=== PATIENT | male | born 1970 | race Two or more races ===

== ENCOUNTER 2019-05-03 15:35 | Inpatient (IN) | payer MEDICAID, OTHER ==
[~2019-05-03] VITALS: Ht 185.4 cm; Wt 157.5 kg
[2019-05-03] MEDS ORDERED: SODIUM CHLORIDE 0.9% 1,000 ML IV ONE (16:20)
[2019-05-03] MEDS ORDERED: THIAMINE 100mg/ml INJ (200mg/2ml VIAL) IV ONE (16:30)
[2019-05-03] MEDS ORDERED: PANTOPRAZOLE 40 MG/10 ML VIAL INJ IV ONE (17:15)
[2019-05-03 18:38] LABS: Hematocrit 35.9 % (41.0-53.0); Hemoglobin 12.2 g/dL (13.5-17.5); Mean Corpuscular Volume 108.9 fL (80.0-100.0); Platelet Count (auto) 180 10^3/uL (140-450); Red Blood Cells 3.29 10^6/uL (4.5-5.90); White Blood Cell 10.3 10^3/uL (4.4-10.8)
[2019-05-03 18:43] LABS: INR 1.91 (0.9-1.15); Partial Thromboplastin Time 52.1 sec (23.64-32.05)
[2019-05-03 18:45] LABS: Basophils % (manual) 0 (0.0-2.0); Blast Cells 0; Eosinophils % (manual) 0 (0-7); Myelocytes % 0; Promyelocytes % 0; Reactive Lymphocytes 0
[2019-05-03 18:48] LABS: Albumin 1.4 g/dL (3.4-5.0); Anion Gap 25 (5-15); Blood Urea Nitrogen 56 mg/dL (7-18); Calcium 6.7 mg/dL (8.5-10.1); Chloride 109 mmol/L (98-107); Glucose 70 mg/dL (74-106); Magnesium 3.1 mg/dL (1.6-2.6); Potassium 3.4 mmol/L (3.5-5.1); Sodium 141 mmol/L (136-145)
[2019-05-03 18:54] LABS: Alanine Aminotransferase 58 U/L (16-61); Alkaline Phosphatase 107 U/L (45-117); Aspartate Aminotransferase 149 U/L (15-37); BUN/Creatinine Ratio 5.6; Bilirubin, Total 23.4 mg/dL (0.2-1.0); GFR African American 7 mL/min; GFR Non-African American 6 mL/min; Total Protein 5.4 g/dL (6.4-8.2)
[2019-05-03] MEDS ORDERED: LACTULOSE 20Gm/30ML SOLN PO ONE (19:00)
[2019-05-03 19:01] LABS: Carbon Dioxide 7 mmol/L (21-32)
[2019-05-03 19:14] LABS: Band Neutrophils % (manual) 9; Lymphocytes % (manual) 4 (10.0-50.0); Metamyelocytes % 1; Monocytes % (manual) 22 (0-12)
[2019-05-03] MEDS ORDERED: DEXTROSE (25%) 10 ML SYRG IV ONE (19:30)
[2019-05-03] MEDS ORDERED: POTASSIUM CHL 10 Meq TABLET PO ONE (19:30)
[2019-05-03] MEDS ORDERED: CALCIUM CHL 100MG/ML 500 MG in D5W 5% 100 ML IV ONE (19:30)
[2019-05-03] MEDS ORDERED: SODIUM BICARBONATE 8.4 % INJ 50ML VIAL IV ONE (19:30)
[2019-05-03] MEDS ORDERED: ONDANSETRON HCL 4 MG/2 ML VIAL IV PRN (20:15)
[2019-05-03] MEDS ORDERED: NITROGLYCERIN 0.4 MG SL TAB SL PRN (20:15)
[2019-05-03] MEDS ORDERED: MORPHINE SULF INJ 2 MG/ML SYRINGE 1ML IV PRN (20:15)
[2019-05-03] MEDS ORDERED: traMADol HCL 50 MG TAB PO PRN (20:15)
[2019-05-03] MEDS ORDERED: SODIUM BICARBONATE 50ML VIAL 50 ML in SOD CHL 0.45% 1,000 ML IV ONE (20:15)
[2019-05-03] MEDS ORDERED: SODIUM BICARBONATE 8.4% INJ 50ML SYRINGE ONE (21:30)
[2019-05-03] MEDS: LORazepam 2MG/ML-1ML VIAL IV PRN (22:20)
[2019-05-04] MEDS: LORazepam 2MG/ML-1ML VIAL IV PRN ×3 (00:51→06:49)
[2019-05-04 01:10] VITALS: BP 116/93
--- NOTE | 2019-05-04 03:49 | NUR ---
Pt moved in hospital bed to Rm 223B 2/2 his moving self to foot of bed in RM 222B and lieing across the bed with head/neck hyperextended off side of bed. He had poured approx half pitcher of water across himself and the bed, removed his O2 because he felt he did not need it and was attempting to further remove his hospital gown which he had half off. Pt repeatedly requested his 'brown shirt' though this RN had already informed him twice it would not be comfortable with his telemetry set up and IV. Charge nurse, ZOEY Vizcaino, notified so pt was moved to be with a sitter for his safety.
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
[2019-05-04 09:00] VITALS: BP 99/61
[2019-05-04] MEDS: THIAMINE 100mg/ml INJ (200mg/2ml VIAL) IV SCH (10:24)
[2019-05-04 10:57] LABS: Red Blood Cells 3.41 10^6/uL (4.5-5.90)
[2019-05-04 11:00] LABS: Hematocrit 36.3 % (41.0-53.0); Hemoglobin 12.5 g/dL (13.5-17.5); Mean Corpuscular Hemoglobin 36.8 pg (28.0-32.0); Mean Corpuscular Hgb Conc. 34.5 g/dL (32.0-36.0); Mean Corpuscular Volume 106.5 fL (80.0-100.0); Platelet Count (auto) 201 10^3/uL (140-450); Red Cell Distribution Width 18.7 % (11.8-14.3)
[2019-05-04 11:07] LABS: Basophils % (manual) 0 (0.0-2.0); Blast Cells 0; Eosinophils % (manual) 0 (0-7); Metamyelocytes % 0; Myelocytes % 0; Promyelocytes % 0; Reactive Lymphocytes 0
[2019-05-04 11:11] LABS: Albumin 1.7 g/dL (3.4-5.0); Calcium 7.9 mg/dL (8.5-10.1); Potassium 3.8 mmol/L (3.5-5.1)
[2019-05-04 11:23] LABS: Bilirubin, Total 26.4 mg/dL (0.2-1.0); Total Protein 6.4 g/dL (6.4-8.2)
[2019-05-04] MEDS ORDERED: LORazepam 2MG/ML-1ML VIAL IV PRN (11:30)
[2019-05-04] MEDS ORDERED: LORazepam 2MG/ML-1ML VIAL IV ONE (11:30)
[2019-05-04] MEDS ORDERED: PHYTONADIONE (VIT K)10 MG/ML 1ML VIAL SUBCUT ONE (11:30)
[2019-05-04 11:37] LABS: BUN/Creatinine Ratio 5.8
--- NOTE | 2019-05-04 11:45 | NUR ---
WOUND CARE NOTE: Wound care in to see patient per wound care request regarding multiple abrasions and low Micky score of 13. Bedside nurse took photograph of patient's skin issue upon admission for reference. Patient is 48 years old male, with admitting diagnosis of Hepatorenal Failure. Patient is resting in bed in Rm. 223B. He's awake, not oriented and restless. He has sitter at bedside for safety. He's max assist in turning and repositioning. Patient appears to be in mild pain using Mejias Schumacher Faces Pain Scale. Skin assessment done with the assistance of patient's nurse, ZOEY Mota. No wound noted other than R knee and Rt lower leg superficial abrasion and ecchymosis, area is clean and dry, left open to air. On reports patient is heavy drinker and had a fall. Patient's medial sacrum at intragluteal fold noted with moist redness consistent with intertrigo/MASD. Patient's skin also noted with yellow discoloration. Cleansed patient's R knee and sacral IGF with mild soap and water, patted dry and applied Z Guard cream. Repositioned patient for comfort, redistributed pressure points with pillows. Patient tolerated well. Sitter at bedside. RECOMMENDATION: BID/PRN cleaning and application of Z Guard cream to R knee abrasion and sacral intragluteal fold, perineum per MD order, dietary consult, frequent turning and repositioning schedule as condition permits ,redistribute pressure points with pillows, elevate bilateral heels on pillows, keep clean and dry, continue monitoring by wound care while patient is hospitalized. Addendum: 05/04/19 at 1827 by Aracelis Ivy RN Amended: Links added.
[2019-05-04 11:46] LABS: INR 1.74 (0.9-1.15); Partial Thromboplastin Time 44.4 sec (23.64-32.05)
--- NOTE | 2019-05-04 12:00 | NUR ---
RECTAL TUBE INSERTED
[2019-05-04 12:14] LABS: Alcohol, Urine < 3.0 mg/dL (0-5); Amphetamine Screen, Urine NEGATIVE (NEGATIVE); Barbiturate Scree,Urine NEGATIVE (NEGATIVE); Benzodiazephine Screen, Urine NEGATIVE (NEGATIVE); Cannabinoid Screen, Urine NEGATIVE (NEGATIVE); Cocaine Screen, Urine NEGATIVE (NEGATIVE); Phencyclidine Screen, Urine NEGATIVE (NEGATIVE)
[2019-05-04 12:16] LABS: Opiate Scree,Urine NEGATIVE (NEGATIVE)
[2019-05-04 12:25] LABS: Protein, Urine 636.8 mg/dL (0.0-11.9)
[2019-05-04] MEDS: ALBUMIN 25% 100 ML IV SCH ×2 (12:30→19:53)
[2019-05-04 13:00] VITALS: BP 105/58
[2019-05-04] MEDS: SODIUM BICARBONATE 50ML VIAL 100 ML, POTASSIUM CHLORIDE 20 MEQ in D5W 5% 1,000 ML IV SCH (13:22)
[2019-05-04 13:35] LABS: Band Neutrophils % (manual) 5; Lymphocytes % (manual) 6 (10.0-50.0); Monocytes % (manual) 14 (0-12)
[2019-05-04] MEDS: LACTULOSE 20Gm/30ML SOLN PR SCH ×2 (13:51→19:50)
[2019-05-04] MEDS: OCTREOTIDE ACETATE 100 MCG/ML VL SUBCUT SCH ×2 (14:59→22:15)
[2019-05-04 17:20] VITALS: BP 110/64
--- NOTE | 2019-05-04 17:22 | NUR ---
PATIENT TRANSFERRED TO [facility]
--- NOTE | 2019-05-04 18:00 | NUR ---
Patient in room 261 from 223B. Patient on the monitor. Patient responsive to name but response is garbled and incoherent. Patient on 2L NC saturation at 99%. IV left forearm patent, clean, dry, and intact. Ramos and rectal tube to gravity. No S/S of pain/ SOB or distress noted. Bed locked and in the lowest position, side rails up x2, call light with in reach. Family at bedside. Report to be given to night clerk RN. will continue to monitor.
--- NOTE | 2019-05-04 19:35 | NUR ---
OPEN SHIFT NOTE PATIENT RESTING IN BED WITH EYES CLOSED, OPENS EYES FOR SHORT PERIOD OF TIME WHEN CALLED BY NAME AND LIGHT SHAKING, PATIENT A&O TO SELF AND LOCATION, NOTED TO BE LETHARGIC AND UNABLE TO COMPLETE FULL SENTENCES BEFORE CLOSING EYES. SKIN COLOR JAUNDICED AND DIAPHORETIC WITH EDEMA THROUGHOUT. RECTAL TUBE IN PLACE WITH DARK LIQUID STOOL, AND SANDOVAL CATHETER TO GRAVITY WITH MINIMAL DARK BROWN COLORED URINE. RIGHT KNEE NOTED TO HAVE ABRASION AND HEMATOMA AND UPPER ABD WITH LARGE ECCHYMOTIC AREA. VITAL SIGNS STABLE AT THIS TIME, CONNECTED TO BEDSIDE MONITOR.CONTINUE POC AND FALL,ASPIRATION AND PRESSURE ULCER PRECAUTIONS. PATIENT HAS SITTER AT BEDSIDE FOR PATIENT SAFETY.
[2019-05-04 20:00] VITALS: BP 91/45
[2019-05-04] MEDS: FAMOTIDINE (10MG/ML) 2ML VL IV SCH (22:07)
[2019-05-05] VITALS: BP 94/57
--- NOTE | 2019-05-05 02:27 | NUR ---
URINE SAMPLE COLLECTED AND SENT TO LAB VIA BULLET
[2019-05-05] MEDS: SODIUM BICARBONATE 50ML VIAL 100 ML, POTASSIUM CHLORIDE 20 MEQ in D5W 5% 1,000 ML IV SCH ×4 (02:29→23:49)
[2019-05-05] MEDS: ALBUMIN 25% 100 ML IV SCH ×2 (03:49→13:34)
[2019-05-05 04:00] VITALS: BP 92/53
[2019-05-05 05:02] LABS: White Blood Cell 12.4 10^3/uL (4.4-10.8)
[2019-05-05 05:03] LABS: Basophils # (auto) 0.1 uL; Basophils % (auto) 0.8 % (0.0-2.0); Eosinophils # (auto) 0.1 uL; Eosinophils % (auto) 0.4 % (0.0-7.0); Hematocrit 36.6 % (41.0-53.0); Hemoglobin 12.8 g/dL (13.5-17.5); Lymphocytes % (auto) 7.7 % (10.0-50.0); Mean Corpuscular Hemoglobin 37.3 pg (28.0-32.0); Mean Corpuscular Hgb Conc. 34.8 g/dL (32.0-36.0); Mean Corpuscular Volume 107.1 fL (80.0-100.0); Monocytes # (auto) 1.3 uL; Monocytes % (auto) 10.2 % (0.0-12.0); Neutrophils # (auto) 10.1 uL; Neutrophils % (auto) 80.9 % (37.0-80.0); Nucleated Red Blood Cells % 0.4 %; Platelet Count (auto) 186 10^3/uL (140-450); Red Blood Cells 3.42 10^6/uL (4.5-5.90); Red Cell Distribution Width 18.4 % (11.8-14.3)
[2019-05-05 05:28] LABS: Albumin 2.1 g/dL (3.4-5.0); Calcium 7.8 mg/dL (8.5-10.1); Potassium 3.9 mmol/L (3.5-5.1)
--- NOTE | 2019-05-05 05:30 | NUR ---
AM CARE COMPLETE BED BATH PROVIDED USING CHG WIPES AND WARM WASH CLOTHS. PERINEAL AREA CLEANED, SKIN INTEGRITY REASSESSED. ABRASION AND HEMATOMA TO RIGHT KNEE, PATIENT WITH GENERALIZED EDEMA THROUGHOUT AND MOISTURE ASSOCIATED DERMATITIS TO THE PERINEAL AND SACRAL AREA CLEANSED, PATTED DRY, AND ZGUARD BARRIER CREAM APPLIED WITH OPTIFOAM FOR PREVENTATIVE TO SACRUM. PATIENT REPOSITIONED IN BED FOR COMFORT.
[2019-05-05] MEDS: OCTREOTIDE ACETATE 100 MCG/ML VL SUBCUT SCH ×3 (05:38→21:35)
[2019-05-05 05:39] LABS: Total Protein 6.7 g/dL (6.4-8.2)
[2019-05-05] MEDS: LACTULOSE 20Gm/30ML SOLN PR SCH ×5 (05:42→23:49)
--- NOTE | 2019-05-05 06:54 | NUR ---
END OF SHIFT NOTE PATIENT RESTING IN BED WITH EYES CLOSED. NO S/S OF DISTRESS OR SOB. HR 84, O2 SAT 96, RR 21. WILL ENDORSE CARE TO DAY SHIFT RN. BED ALARM ON. WILL ENDORSE CARE TO DAY SHIFT RN.
[2019-05-05 07:16] LABS: Urine Amorphous Crystal MANY /hpf (None Seen); Urine Bacteria MANY /hpf (None Seen); Urine Blood 2+ /uL (Negative); Urine Hyaline Cast MANY /lpf (0 - 2); Urine Mucus FEW (None Seen); Urine Specific Gravity 1.025 (1.001-1.035); Urine WBC 157 /hpf (0 - 3)
[2019-05-05 07:45] VITALS: BP 100/63
--- NOTE | 2019-05-05 08:00 | NUR ---
Opening Shift Note Assumed care of patient. Patient eyes open to name but does not respond appropriately. Patient has left forearm 20G running fluids at 125ml/hr, patent, clean, dry, and intact. Ramos to gravity dark david urine noted. Rectal tube in place and to gravity. Patient on the monitor. Patient on 2L NC saturation at 97%. Patient extremely jaundice. No S/S of distress/SOB or pain. Instructed on POC and to call for assist PRN. Bed locked and in the lowest position, side rails up x2, call light with in reach. Will continue to monitor.
--- NOTE | 2019-05-05 09:00 | NUR ---
Dr. Sherman at bedside.
[2019-05-05 09:59] LABS: INR 1.75 (0.9-1.15); Partial Thromboplastin Time 41.6 sec (23.64-32.05)
--- NOTE | 2019-05-05 10:00 | NUR ---
Medication dosages, usages, and side effects explained to patient and family at bedside. Patient unable to verbalize understanding but family at bedside verbalized understanding. Will continue to monitor.
[2019-05-05] MEDS: FAMOTIDINE (10MG/ML) 2ML VL IV SCH ×2 (10:52→21:35)
[2019-05-05] MEDS: THIAMINE 100mg/ml INJ (200mg/2ml VIAL) IV SCH (10:52)
[2019-05-05] MEDS: FOLIC ACID 1 MG in D5W 5% 50 ML IV SCH (10:53)
[2019-05-05 11:38] LABS: Hepatitis A Ab IgM Negative
[2019-05-05 11:39] LABS: Hepatitis B Core IgM Negative; Hepatitis B Surface Antigen Negative (Negative); Hepatitis C Antibody Negative (Negative)
[2019-05-05 11:45] VITALS: BP 107/61
--- NOTE | 2019-05-05 12:00 | NUR ---
No change in patient condition. No S/S of pain/SOB or distress at this time. Will continue to monitor.
--- NOTE | 2019-05-05 12:27 | NUR ---
Nutrition consult/assessment Notes please see attached link for complete assessment Est. Needs ABW [id number] kcal (17-20 kcal/kgBW), 72-96 gms pro (0.6-0.8 gms/kgBW d/t elev ammonia severe hypoalbuminemia). Will continue to monitor pertinent labs and reassess nutrient need prn Addendum: 05/05/19 at [address] Amended: Links added.
[2019-05-05] MEDS ORDERED: ALLOPURINOL 100 MG TAB PO SCH (14:30)
--- NOTE | 2019-05-05 15:00 | NUR ---
Dr. Escalante at bedside.
[2019-05-05] MEDS: MIDODRINE HCL 10 MG TAB PO SCH (15:44)
[2019-05-05 15:50] VITALS: BP 116/62
--- NOTE | 2019-05-05 16:00 | NUR ---
Patient able to swallow crushed pills in apple sauce with no S/S of aspiration. Will continue to monitor.
--- NOTE | 2019-05-05 17:00 | NUR ---
No change in patient condition. No S/S of pain/SOB or distress at this time. Will continue to monitor.
--- NOTE | 2019-05-05 18:15 | NUR ---
End of shift note: Patient sleeping at this time. Patient still mumbling incoherent words. Patient has left forearm 20G running fluids at 125ml/hr, patent, clean, dry, and intact. Ramos to gravity dark david urine noted. Rectal tube in place and to gravity. Patient on the monitor. Patient on 2L NC saturation at 97%. Patient is to go to [facility] tomorrow 05/06 for tunnel cath placement. Consents in the chart. Patient is also to have Dialysis after tunnel cath placement. No S/S of distress/SOB or pain. Bed locked and in the lowest position, side rails up x2, call light with in reach. Report to be given to cable strander RN. Will continue to monitor.
--- NOTE | 2019-05-05 19:00 | NUR ---
OPENING NOTES ASSUMED CARE, LAYING ON BED WITH HIS EYES CLOSED, UNABLE TO RESPOND APPROPRIATELY, JUST MOANING BUT WITH NO SIGNS OF DISTRESS, STILL WITH GENERALIZED JAUNDICE, RESPIRATIONS EVEN AND UNLABORED ON O2 @ 2L/MIN WITH CLEAR BREATH SOUNDS THROUGHOUT, ASNDOVAL CATHETER DRAINING TO A DARK-JOSÉ LUIS URINE, FLEXISEAL IN PLACE BUT STILL LEAKING. BED IN LOWEST POSITION WITH SIDE RAILS UP, BED ALARM ON. SITTER AT BEDSIDE. WILL CONTINUE CARE.
[2019-05-05 20:00] VITALS: BP 112/44
[2019-05-06] VITALS: BP 112/44
[2019-05-06 04:00] VITALS: BP 90/53
--- NOTE | 2019-05-06 05:30 | NUR ---
Patient bathe/linen change Patient given complete bath. Skin integrity assessed for any changes. Complete linens and gown changed. Patient repositioned for comfort.
[2019-05-06 05:49] LABS: Albumin 2.3 g/dL (3.4-5.0); Calcium 7.5 mg/dL (8.5-10.1)
[2019-05-06 05:52] LABS: BUN/Creatinine Ratio 6.5
[2019-05-06 05:58] LABS: Basophils # (auto) 0.1 uL; Basophils % (auto) 0.8 % (0.0-2.0); Eosinophils # (auto) 0.2 uL; Eosinophils % (auto) 1.7 % (0.0-7.0); Hematocrit 36.1 % (41.0-53.0); Hemoglobin 12.8 g/dL (13.5-17.5); Lymphocytes # (auto) 1.1 uL; Lymphocytes % (auto) 8.4 % (10.0-50.0); Mean Corpuscular Hemoglobin 37.6 pg (28.0-32.0); Mean Corpuscular Hgb Conc. 35.4 g/dL (32.0-36.0); Mean Corpuscular Volume 106.3 fL (80.0-100.0); Monocytes # (auto) 1.3 uL; Monocytes % (auto) 9.8 % (0.0-12.0); Neutrophils # (auto) 10.6 uL; Neutrophils % (auto) 79.3 % (37.0-80.0); Nucleated Red Blood Cells % 0.5 %; Platelet Count (auto) 175 10^3/uL (140-450); Red Blood Cells 3.39 10^6/uL (4.5-5.90); Red Cell Distribution Width 18.1 % (11.8-14.3); White Blood Cell 13.4 10^3/uL (4.4-10.8)
[2019-05-06 06:04] LABS: Bilirubin, Total 36.1 mg/dL (0.2-1.0)
[2019-05-06] MEDS: LACTULOSE 20Gm/30ML SOLN PR SCH ×4 (06:56→23:37)
[2019-05-06] MEDS: MIDODRINE HCL 10 MG TAB PO SCH ×3 (06:56→18:00)
[2019-05-06] MEDS: OCTREOTIDE ACETATE 100 MCG/ML VL SUBCUT SCH ×3 (06:58→22:08)
[2019-05-06] MEDS ORDERED: SODIUM CHL 0.9% 1000 ML BAG XX ONE (07:00)
[2019-05-06 07:45] VITALS: BP 111/66
[2019-05-06 07:53] LABS: Total Protein 6.3 g/dL (6.4-8.2)
--- NOTE | 2019-05-06 08:30 | NUR ---
Opening Shift Note Assumed care of patient, laying in bed, eyes closed, arousable to shaking, unable to respond to questions, unable to follow commands but yells when turned. No S/S of distress/SOB or pain. See interventions for complete assessment. Bed locked on lowest position, side rails up x2, bed alarms on at all times, will continue to monitor for changes Q1hr and PRN.
--- NOTE | 2019-05-06 09:00 | NUR ---
Unsuccesful attempt to insert NGT, patient started bleeding on his nose upon inserting two inches long of the NGT catheter. Dr Sherman informed. Received verbal instruction to hold NGT insertion.
[2019-05-06] MEDS: SODIUM BICARBONATE 50ML VIAL 100 ML, POTASSIUM CHLORIDE 20 MEQ in D5W 5% 1,000 ML IV SCH (09:28)
[2019-05-06] MEDS: FAMOTIDINE (10MG/ML) 2ML VL IV SCH ×2 (09:29→22:07)
[2019-05-06] MEDS: THIAMINE 100mg/ml INJ (200mg/2ml VIAL) IV SCH (09:29)
[2019-05-06] MEDS: FOLIC ACID 1 MG in D5W 5% 50 ML IV SCH (09:29)
[2019-05-06] MEDS: rifAXIMin 550 MG TAB PO SCH ×2 (10:00→22:00)
--- NOTE | 2019-05-06 10:05 | NUR ---
Dr Escalante at bedside, updated on patient's status. Patient seen and examined. Will carry out new orders.
--- NOTE | 2019-05-06 10:10 | NUR ---
Patient out of room to Product Support Rep for Dialysis Catheter insertion.
[2019-05-06] MEDS ORDERED: LIDOCAINE 2%HCL (LOCAL ANESTH.) INJ 20ML MDV ONE (10:44)
[2019-05-06] MEDS: ALLOPURINOL 100 MG TAB PO SCH (11:00)
[2019-05-06] MEDS ORDERED: fentaNYL CITRATE 100 MCG/2 ML VL ONE (11:19)
[2019-05-06] MEDS ORDERED: MIDAZOLAM HCL 1MG/1ML-2 ML VIAL ONE (11:19)
[2019-05-06] MEDS ORDERED: ceFAZolin 1GM/50ML 50 ML IV ONE (11:33)
[2019-05-06] MEDS ORDERED: SODIUM CHL 0.9% 50 ML ONE (11:35)
[2019-05-06] MEDS ORDERED: HEPARIN SODIUM (PORCINE) 5000 UNITS/ML 1ML VIAL ONE ×2 (11:47→11:53)
[2019-05-06 12:10] VITALS: BP 122/95
--- NOTE | 2019-05-06 12:30 | NUR ---
Came back from lunch, patient back to room from Chair Car Attendant s/p Dialysis Catheter insertion on RT IJ, VS WNL. Will continue to monitor.
--- NOTE | 2019-05-06 12:31 | NUR ---
PO medications held at this time. Patient not safe and awake enough to swallow.
--- NOTE | 2019-05-06 12:45 | NUR ---
Dr Davila at bedside, updated on patient's status. Patient seen and examined. No new orders at this time.
--- NOTE | 2019-05-06 13:15 | NUR ---
HD started at bedside.
--- NOTE | 2019-05-06 13:21 | NUR ---
Dr Sherman at bedside, updated on patient's status. Patient seen and examined. Will carry out new orders.
[2019-05-06] MEDS ORDERED: ALBUMIN 25% 100 ML IV ONE (13:30)
[2019-05-06 15:45] VITALS: BP 116/49
--- NOTE | 2019-05-06 16:57 | NUR ---
assessment Patient is a 48 year old male. Per patients father [place] [phone] who is at bedside prior to admission patient lived home with him and was independent. On the day of admission patient was at the [facility] and fell, went home and went home due to not feeling well and fell trying to get into the house. Patients father then called 911and patient was admitted to ICU. Patient is having dialysis at bedside. Per Dr Sherman she is talking to family about possible hospice and discontinuing dialysis. I will follow up with family on Thursday. Addendum: 05/06/19 at 1701 by Christine SETHI Amended: Links added.
[2019-05-06 20:00] VITALS: BP 112/64
--- NOTE | 2019-05-06 23:13 | NUR ---
ROUNDS PATIENT CONTINUES TO BE ASLEEP, NO S/S OF DISTRESS OR SOB, HR 90, POX 99, RR20. BED ALARM ON. PATIENT OCCASIONALLY MOVES ARMS UP AND DOWN BUT IS UNABLE TO TURN SELF, ON A TURN Q2H AND PRN SCHEDULE. CONTINUE MONITORING AND POC.
[2019-05-07] VITALS: BP 131/62
--- NOTE | 2019-05-07 01:30 | NUR ---
AM CARE/ NEW FLEXISEAL PLACEMENT. COMPLETE BED BATH PROVIDED USING CHG WIPES AND WARM SOAPY WASH CLOTHS. SKIN INTEGRITY REASSESSED AT THIS TIME: NO NEW CHANGES NOTED, ABD AND UPPER EXTREMITIES WITH MULTIPLE ECCHYMOTIC AREAS NOTED. COMPLETE LINEN CHANGE DONE DUE TO FLEXISEAL LEAKING. NEW FLEXISEAL PLACED : PATIENT TOLERATED WELL. NEW GOWN PLACED ON PATIENT AND REPOSITIONED PATIENT IN BED FOR COMFORT. FLEXISEAL DRAINING DARK LIQUID BROWN STOOL. CONTINUE POC.
[2019-05-07] MEDS: LACTULOSE 20Gm/30ML SOLN PR SCH ×5 (03:44→22:16)
--- NOTE | 2019-05-07 03:44 | NUR ---
ORAL CARE PERFORMED PATIENT TOLERATED WELL
[2019-05-07 04:00] VITALS: BP 114/55
[2019-05-07 04:42] LABS: Red Blood Cells 3.52 10^6/uL (4.5-5.90)
[2019-05-07 04:44] LABS: Hematocrit 37.4 % (41.0-53.0); Hemoglobin 13.2 g/dL (13.5-17.5); Mean Corpuscular Hemoglobin 37.4 pg (28.0-32.0); Mean Corpuscular Hgb Conc. 35.2 g/dL (32.0-36.0); Mean Corpuscular Volume 106.3 fL (80.0-100.0); Platelet Count (auto) 177 10^3/uL (140-450); Red Cell Distribution Width 18.3 % (11.8-14.3); White Blood Cell 18.4 10^3/uL (4.4-10.8)
[2019-05-07 05:08] LABS: Albumin 2.3 g/dL (3.4-5.0); BUN/Creatinine Ratio 6.1; Calcium 7.6 mg/dL (8.5-10.1)
[2019-05-07 05:20] LABS: Bilirubin, Total 35.9 mg/dL (0.2-1.0)
[2019-05-07 05:22] LABS: Total Protein 6.4 g/dL (6.4-8.2)
[2019-05-07 05:47] LABS: Basophils % (manual) 0 (0.0-2.0); Blast Cells 0; Eosinophils % (manual) 0 (0-7); Metamyelocytes % 0; Myelocytes % 0; Promyelocytes % 0; Reactive Lymphocytes 0
[2019-05-07] MEDS: MIDODRINE HCL 10 MG TAB PO SCH ×3 (06:00→17:26)
[2019-05-07 06:05] LABS: Band Neutrophils % (manual) 9
[2019-05-07 06:06] LABS: Lymphocytes % (manual) 4 (10.0-50.0); Monocytes % (manual) 12 (0-12)
[2019-05-07] MEDS: OCTREOTIDE ACETATE 100 MCG/ML VL SUBCUT SCH ×3 (06:10→22:17)
[2019-05-07 07:30] VITALS: BP 100/55
--- NOTE | 2019-05-07 07:30 | NUR ---
Opening Shift Note Assumed care of patient, laying in bed, eyes closed, arousable to voice, able to follow simple commands. No S/S of distress/SOB or pain. See interventions for complete assessment. Bed locked on lowest position, side rails up x2, bed alarms on at all times, will continue to monitor for changes Q1hr and PRN.
--- NOTE | 2019-05-07 08:00 | NUR ---
Dr Sherman at bedside, updated on patient's status. Patient seen and examined. Will carry out new orders.
[2019-05-07] MEDS ORDERED: traMADol HCL 50 MG TAB PO PRN (09:45)
[2019-05-07] MEDS ORDERED: MORPHINE SULF INJ 2 MG/ML SYRINGE 1ML IV PRN (09:45)
[2019-05-07] MEDS: ALLOPURINOL 100 MG TAB PO SCH (10:00)
[2019-05-07] MEDS: rifAXIMin 550 MG TAB PO SCH ×2 (10:00→22:00)
[2019-05-07] MEDS: THIAMINE 100mg/ml INJ (200mg/2ml VIAL) IV SCH (10:31)
[2019-05-07] MEDS: FAMOTIDINE (10MG/ML) 2ML VL IV SCH ×2 (10:32→22:16)
[2019-05-07] MEDS: FOLIC ACID 1 MG in D5W 5% 50 ML IV SCH (10:34)
[2019-05-07 11:30] VITALS: BP 98/52
[2019-05-07] MEDS: AMPICILLIN INJ 500 MG in SODIUM CHL 0.9% 50 ML IV SCH ×2 (13:15→17:26)
[2019-05-07 15:30] VITALS: BP 119/57
--- NOTE | 2019-05-07 19:50 | NUR ---
SHIFT OPENING NOTE RECEIVED PATIENT LAYING IN BED WITH EYES CLOSED. AWOKEN BY VOICE. ALERT AND ORIENTED X3. NO DISTRESS OR PAIN NOTED. ON 2L N/C. SITTER AT BEDSIDE. PATIENT IS RESTLESS. FLEXISEAL AND SANDOVAL CATH IN PLACE. RIGHT UPPER CHEST CHLOE IN PLACE. ATTEMPTED TO INSTRUCT IN POC. PHYSICAL ASSESSMENT COMPLETED, SEE INTERVENTIONS. WILL CLOSELY MONITOR.
[2019-05-07 20:00] VITALS: BP 115/59
[2019-05-08] VITALS: BP_SYST 107; BP_SYST 116; BP_DIAS 62; BP_DIAS 69
[2019-05-08] MEDS: LACTULOSE 20Gm/30ML SOLN PR SCH ×4 (00:25→12:00)
[2019-05-08] MEDS: AMPICILLIN INJ 500 MG in SODIUM CHL 0.9% 50 ML IV SCH ×5 (00:25→23:38)
--- NOTE | 2019-05-08 00:25 | NUR ---
ROUNDS PATIENT LAYING IN BED SLEEPING. VS STABLE. SITTER AT BEDSIDE. WILL CONTINUE TO CLOSELY MONITOR.
--- NOTE | 2019-05-08 02:00 | NUR ---
MORNING HYGIENE CARE FULL BED BATH PERFORMED USING CHG WIPES. GOWN CHANGED. COMPLETE LINEN CHANGE. ORAL CARE DONE, PATIENT STARTED BLEEDING IN MOUTH SO COULDN'T CONTINUE. PATIENT REPOSITIONED FOR COMFORT. TOLERATED IT WELL. SITTER REMAINS AT BEDSIDE.
--- NOTE | 2019-05-08 02:20 | NUR ---
IV insertion IV access obtained, via clean sterile technique by inserting [20] gauge catheter at [LEFT WRIST] after [1] attempt(s). IV secured properly. No trauma to site. Patient tolerated well. NOTE: LFA IV LEAKING AND REMOVED
[2019-05-08 04:00] VITALS: BP 110/58
[2019-05-08] MEDS: MIDODRINE HCL 10 MG TAB PO SCH ×3 (04:53→17:45)
[2019-05-08 05:09] LABS: Red Blood Cells 3.53 10^6/uL (4.5-5.90); Red Cell Distribution Width 18.7 % (11.8-14.3)
[2019-05-08 05:13] LABS: Hemoglobin 13.2 g/dL (13.5-17.5); Mean Corpuscular Hemoglobin 37.3 pg (28.0-32.0); Mean Corpuscular Hgb Conc. 34.7 g/dL (32.0-36.0); Mean Corpuscular Volume 107.5 fL (80.0-100.0); Platelet Count (auto) 165 10^3/uL (140-450); White Blood Cell 20.4 10^3/uL (4.4-10.8)
[2019-05-08] MEDS: OCTREOTIDE ACETATE 100 MCG/ML VL SUBCUT SCH ×3 (05:13→21:59)
[2019-05-08 05:22] LABS: Basophils % (manual) 0 (0.0-2.0); Blast Cells 0; Myelocytes % 0; Promyelocytes % 0; Reactive Lymphocytes 0
[2019-05-08 05:27] LABS: Calcium 7.6 mg/dL (8.5-10.1); Potassium 4.2 mmol/L (3.5-5.1)
[2019-05-08 05:41] LABS: Bilirubin, Total 33.8 mg/dL (0.2-1.0); Total Protein 6.3 g/dL (6.4-8.2)
[2019-05-08 06:12] LABS: Band Neutrophils % (manual) 5; Eosinophils % (manual) 1 (0-7); Lymphocytes % (manual) 4 (10.0-50.0); Metamyelocytes % 6; Monocytes % (manual) 12 (0-12)
--- NOTE | 2019-05-08 07:05 | NUR ---
END OF SHIFT PATIENT IS LAYING IN BED SLEEPING. SPORTS STATISTICIAN AT BEDSIDE. WILL GIVE REPORT AND ENDORSE CARE TO THE DAY SHIFT RN.
--- NOTE | 2019-05-08 07:30 | NUR ---
RECEIVED PATIENT SITTING UP IN THE BED, A/O TIMES 3, O2 BY N/C AT 2L, DIALYSIS BEING DONE BY THE CHLOE IN THE RT SIDE OF THE NECK, LT WRIST 20G WITH NS AT TKO, SANDOVAL TO GRAVITY, SCD'S TO JULIANNA LEGS, FLEXI SEAL TO THE RECTUM, MITTENS TO JULIANNA HAND, PATIENT IS CONFUSED AT TIMES AND PULLS ON THE WIRES
[2019-05-08 07:45] VITALS: BP 102/61
--- NOTE | 2019-05-08 08:30 | NUR ---
PATIENT IS TO DROWSY TO FEED FALLS ASLEEP WHEN YOU ARE TALKING TO HIM
--- NOTE | 2019-05-08 08:45 | NUR ---
FAMILY IN TO SEE THE PATIENT
[2019-05-08] MEDS: rifAXIMin 550 MG TAB PO SCH ×2 (09:38→22:00)
[2019-05-08] MEDS: ALLOPURINOL 100 MG TAB PO SCH (09:38)
--- NOTE | 2019-05-08 09:45 | NUR ---
EXPLAIN MEDICATIONS TO THE PATIENT REGARDING THE DOSAGE,USAGE, AND THE SIDE EFFECTS, PATIENT UNABLE TO UNDERSTAND MEDS GIVEN ORDERED
[2019-05-08] MEDS: FAMOTIDINE (10MG/ML) 2ML VL IV SCH ×2 (09:46→21:58)
[2019-05-08] MEDS: THIAMINE 100mg/ml INJ (200mg/2ml VIAL) IV SCH (09:46)
[2019-05-08] MEDS: FOLIC ACID 1 MG in D5W 5% 50 ML IV SCH (09:46)
--- NOTE | 2019-05-08 10:10 | NUR ---
DIALYSIS FINISHED REMOVED 2LITERS, B/P 95/51
--- NOTE | 2019-05-08 10:20 | NUR ---
DR ARZATE IN TO SEE THE PATIENT
--- NOTE | 2019-05-08 11:30 | NUR ---
FAMILY IN TO SEE THE PATIENT
[2019-05-08 11:45] VITALS: BP 99/56
--- NOTE | 2019-05-08 12:00 | NUR ---
FAMILY LEFT AND STATED THEY WOULD BE BACK
--- NOTE | 2019-05-08 13:09 | NUR ---
PAGED DR ARZATE TO MAKE AWARE THAT HE PATIENT IS HAVING BLOODY DRAINAGE FROM THE RECTAL TUBE, FAMILY AT THE BED SIDE, DR ARZATE STATES SHE WILL BE HERE SHORTLY
--- NOTE | 2019-05-08 13:35 | NUR ---
JESSICA STATES HE IS GOING TO TAKE A NAP FAMILY WENT O THE WAITING ROOM
--- NOTE | 2019-05-08 14:20 | NUR ---
DR ARZATE TALKING TO THE FAMILY REGARDING THE PROGNOSIS OF THE PATIENT
--- NOTE | 2019-05-08 15:30 | NUR ---
PATIENT APPEARS TO BE SLEEPING
[2019-05-08 15:47] VITALS: BP 118/78
--- NOTE | 2019-05-08 16:04 | NUR ---
FAMILY HAS NOT DECIDED IF THEY ARE GOING TO MAKE HIM A DNR YET PER DR ARZATE AFTER SHE TALKED TO THEM ABOUT THE PROGNOSIS
--- NOTE | 2019-05-08 17:30 | NUR ---
PATIENT STATES HE IS DOING OKAY, NO PAIN
--- NOTE | 2019-05-08 17:45 | NUR ---
BROTHER IN TO SEE HIM
--- NOTE | 2019-05-08 18:20 | NUR ---
PATIENT TALKING TO THE BROTHER, O2 AT 2L BY N/C, LEFT WRIST 2OG WITH NS AT TKO, SANDOAVL TO GRAVITY, FLEXI SEAL TO GRAVITY, SCD'S TO JULIANNA LEGS AND MITTENS TO JULIANNA HANDS, NO COMPLAINTS, WILL CONTINUE TO MONITOR AND GIVE REPORT TO THE NEXT SHIFT
[2019-05-08 18:35] LABS: Hematocrit 37.2 % (41.0-53.0)
--- NOTE | 2019-05-08 19:45 | NUR ---
Opening Shift Note Assumed care of patient, awake, A&O x2, followed simple commands. Breathing through the mouth, even, mild tachypneic, No S/S of distress/SOB or pain. O2sat at mid 90's with room air breathing, Pt pulls the O2NC out. 20G IV at left wrist, CDI site, infusing with NS KVO. Ramos's catheter hung to gravity with dark david to brown urine. Flexi seal in place with liquid dark brown stool in the tubing. SCD at BLE. Mittens on to prevent pulling. Bed in low position, all alarms are audible, fall and safety precaution in place. Instructed on POC and to call for assist PRN, will continue to monitor for changes Q1hr and PRN.
[2019-05-08 20:00] VITALS: BP 107/65
--- NOTE | 2019-05-08 21:50 | NUR ---
Condition update Pt's condition and v/s stable. Breathe through the mouth, mild tachypneic, O2sat mid 90's on room air. Turns on bed by self. Continue care.
--- NOTE | 2019-05-08 22:45 | NUR ---
Patient bathe/linen change Patient given complete bath with CHG wipes. Skin integrity assessed for any changes, no new changes. Optifoam at sacrum intact. Z-guard applied to perirectal and perineal area. Mild Flexi seal leaking, cleaning done. Complete linens changed. Patient repositioned for comfort. Mouth care done with a sponge, mouth wash using a Yankauer suction. Pt cooperated better. Tolerated well with all activities. Continue care.
[2019-05-09] VITALS: BP 107/62
[2019-05-09 00:40] LABS: Hematocrit 37.8 % (41.0-53.0); Hemoglobin 13.2 g/dL (13.5-17.5)
--- NOTE | 2019-05-09 01:00 | NUR ---
Condition update V/S and condition stable. EKG SR. Asked for water, explained that Pt is NPO now but the nurse can help to moist the mouth. Mouth care done with a wet sponge stick and a Yankauer suction. Lip moisturizer applied. Turning on bed by self well. No s/s of distress. Flexi seal in place, no bleeding noted. Continue monitoring.
[2019-05-09 04:00] VITALS: BP 123/68
--- NOTE | 2019-05-09 04:20 | NUR ---
Condition update v/s stable. Pt slept on and off, pulled a blanket/ gown, pulled out a mitten. Fixed the linens and put back on the mitten. Pt able to split a thick mucus with old blood in the mouth out, assisted with cleaning. Continue care.
[2019-05-09 05:55] LABS: Hemoglobin 13.1 g/dL (13.5-17.5); Mean Corpuscular Hemoglobin 37.3 pg (28.0-32.0); Mean Corpuscular Hgb Conc. 34.9 g/dL (32.0-36.0)
[2019-05-09] MEDS: MIDODRINE HCL 10 MG TAB PO SCH ×4 (06:00→18:51)
[2019-05-09 06:01] LABS: Hematocrit 37.6 % (41.0-53.0); Mean Corpuscular Volume 106.8 fL (80.0-100.0); Platelet Count (auto) 136 10^3/uL (140-450); Red Blood Cells 3.52 10^6/uL (4.5-5.90); Red Cell Distribution Width 18.8 % (11.8-14.3); White Blood Cell 20.9 10^3/uL (4.4-10.8)
[2019-05-09 06:11] LABS: Basophils % (manual) 0 (0.0-2.0); Blast Cells 0; Myelocytes % 0; Promyelocytes % 0; Reactive Lymphocytes 0
[2019-05-09 06:13] LABS: Potassium 3.7 mmol/L (3.5-5.1)
[2019-05-09] MEDS: AMPICILLIN INJ 500 MG in SODIUM CHL 0.9% 50 ML IV SCH ×4 (06:16→23:30)
[2019-05-09] MEDS: OCTREOTIDE ACETATE 100 MCG/ML VL SUBCUT SCH ×3 (06:17→21:49)
[2019-05-09 06:33] LABS: Albumin 1.8 g/dL (3.4-5.0); BUN/Creatinine Ratio 6.8; Bilirubin, Total 31.6 mg/dL (0.2-1.0); Calcium 7.5 mg/dL (8.5-10.1)
--- NOTE | 2019-05-09 07:30 | NUR ---
RECEIVED PATIENT SEMI FOWLERS IN BED, A/O TIMES 4, TALKING AND MORE COHERENT TODAY, O2 BY R/A, SANDOVAL TO GRAVITY, FLEXI SEAL TO RECTUM INTACT, AND DRAINING BROWNISH STOOL, DENIES PAIN SCD'S TO JULIANNA LEGS, LT WRIST 20G WITH NS AT TKO INTACT AND PATENT,
[2019-05-09 07:48] VITALS: BP 107/57
--- NOTE | 2019-05-09 08:30 | NUR ---
PATIENT IS NPO UNTIL SEEN BY DR ARZATE
--- NOTE | 2019-05-09 09:50 | NUR ---
SITING UP IN BED TALKING WITH HIS FAMILY AND WATCHNG TV
--- NOTE | 2019-05-09 09:50 | NUR ---
DR ROCKWELL IN TO SEE THE PATIENT AND ORDERED DIALYSIS FOR TOMORROW
[2019-05-09] MEDS: rifAXIMin 550 MG TAB PO SCH ×3 (09:55→22:03)
[2019-05-09] MEDS: ALLOPURINOL 100 MG TAB PO SCH ×2 (09:55→10:57)
[2019-05-09] MEDS: FAMOTIDINE (10MG/ML) 2ML VL IV SCH ×2 (09:58→21:49)
[2019-05-09] MEDS: FOLIC ACID 1 MG in D5W 5% 50 ML IV SCH (09:58)
[2019-05-09] MEDS: THIAMINE 100mg/ml INJ (200mg/2ml VIAL) IV SCH (09:58)
--- NOTE | 2019-05-09 10:50 | NUR ---
PATIENT WAS ABLE TO SWALLOW WITHOUT ANY PROBLEM, DR HUEY Sanchez THE BEDSIDE AND STATED TO FEED HIM AND GIVES HIS MEDS NOW BY MOUTH
--- NOTE | 2019-05-09 11:00 | NUR ---
EXPLAIN MEDICATIONS TO THE PATIENT REGARDING THE DOSAGE, USAGE AND THE SIDE EFFECTS, VERBALIZED THAT HE UNDERSTOOD AND MEDS GIVEN ORDERED
--- NOTE | 2019-05-09 11:16 | NUR ---
DR ARZATE TALKING TO THE FAMILY AND THE PATIENT REGARDING THE POC AND THE PROGNOSIS FOR THE PATIENT
[2019-05-09 11:40] VITALS: BP 116/64
[2019-05-09] MEDS: LACTULOSE 20Gm/30ML SOLN PO SCH ×4 (12:15→23:30)
--- NOTE | 2019-05-09 12:30 | NUR ---
NO DECISION MADE BY THE PATIENT AND FAMILY ABOUT THE DNR
--- NOTE | 2019-05-09 13:00 | NUR ---
PATIENT TRYING TO GET OUT OF THE BED, PT HELPED PATIENT TO STAND BUT HE IS UNSTEADY ON HIS FEET, SO WAS PLACED BACK INTO THE BED
--- NOTE | 2019-05-09 13:30 | NUR ---
FAMILY IN VISITING WITH THE PATIENT CHANGE IN CONDITION, TALKING WITH FAMILY
--- NOTE | 2019-05-09 14:35 | NUR ---
SITING UP IN BED WATCHING TV ON AND OFF
[2019-05-09 15:11] LABS: Band Neutrophils % (manual) 7; Eosinophils % (manual) 2 (0-7); Lymphocytes % (manual) 10 (10.0-50.0); Metamyelocytes % 1; Monocytes % (manual) 6 (0-12)
--- NOTE | 2019-05-09 15:35 | NUR ---
PLACED MITTENS BACK TO JULIANNA HANDS.PATIENT PULED OUT THE FEXI SEAL, WHICH WAS REPLACED,
--- NOTE | 2019-05-09 15:37 | NUR ---
PATIENT HAS BLOODY STOOL FROM THE RECTUM WITH JELLY CONSISTENCY, PAGED DR ARZATE AND MADE AWARE, ALSO STARTING TO GET A LITTLE MORE CONFUSED AT THIS TIME, TAKING OFF HIS CLOTHES AND THE MITTENS, STATES HE DIDN'T DO IT
[2019-05-09 15:40] VITALS: BP 93/52
--- NOTE | 2019-05-09 16:34 | NUR ---
PATIENT LYING IN BED APPEAS TO BE SLEEPING AT THIS TIME, NOT PULLING ON ANY LINES
--- NOTE | 2019-05-09 17:16 | NUR ---
PATIENT AWAKE TRYING TO TAKE OUT THE CHLOE CATHETER IN THIS NECK AND THE RECTAL TUBE , PLACED MITTENS BACK TO JULIANNA HANDS
--- NOTE | 2019-05-09 18:04 | NUR ---
MONO NOW WITH THE, TO KEEP FROM PULLING OUT THE LINES, CHLOE AND OTHER LINES Addendum: 05/09/19 at 1836 by Ewa Reese RN MONO NOW WITH THE PATIENT, CORRECTION
--- NOTE | 2019-05-09 18:36 | NUR ---
PATIENT LYING IN BED, O2 BY R/A, PATIENT APPEAR TO BE SLEEPING AT THIS TIME, SITTER A THE BEDSIDE, SANDOVAL TO GRAVITY, FLEXI SEAL INTACT TO THE RECTUM, SCD'S TO JULIANNA LEGS, MITTENS TO JULIANNA HANDS ,CHLOE TO THE RT SIDE OF THE NECK, LEFT WRIST 20G WITH ANTIBIOTICS INFUSING BY THE IV PUMP, NO SIGNS OF PAIN OR SOB AT THIS TIME, WILL CONTINUE TO MONITOR AND GIVE REPORT TO THE NEXT SHIFT
--- NOTE | 2019-05-09 19:40 | NUR ---
OPEN SHIFT NOTE PATIENT RESTING IN BED WITH EYES CLOSED, EASILY AROUSED /OPENS EYES WHEN CALLED BY NAME. NOTED TO BE ALERT AND ORIENTED X2-3, REORIENTED AND INSTRUCTED ON POC, PATIENT VERBALIZES UNDERSTANDING.MONO FROST AT BEDSIDE FOR PATIENT SAFETY.COMPLETE PHYSICAL ASSESSMENT DONE : SEE INTERVENTIONS.
[2019-05-09 20:00] VITALS: BP 113/58
[2019-05-10] VITALS (7 sets, daily range): BP systolic 88–112; BP diastolic 51–67
--- NOTE | 2019-05-10 01:03 | NUR ---
AM CARE FLEXI-SEAL NOTED TO BE LEAKING DUE TO STOOL NOT BEING COMPLETELY LIQUID, CHUNKS OF BLOODY STOOL NOTED. COMPLETE BED BATH PROVIDED USING CHG WIPES AND WARM WASH CLOTHS. PARTIAL BED LINEN CHANGE DONE. NEW GOWN PLACED ON PATIENT. SACRUM REMAINS INTACT, ZGUARD BARRIER CREAM APPLIED TO PERINEAL AREA. PATIENT REPOSITIONED IN BED FOR COMFORT. CONTINUE POC/MONITORING. SITTER REMAINS AT BEDSIDE.
--- NOTE | 2019-05-10 05:00 | NUR ---
PERINEAL AREA CLEANSED DUE TO MORE JELLY LIKE STOOL INCONTINENCE. NEW CHUX PLACED UNDERNEATH AND NEW GOWN PLACED ON PATIENT.REPOSITIONED IN BED FOR COMFORT.
[2019-05-10 06:01] LABS: White Blood Cell 20.5 10^3/uL (4.4-10.8)
[2019-05-10 06:03] LABS: Hematocrit 37.6 % (41.0-53.0); Hemoglobin 12.9 g/dL (13.5-17.5); Mean Corpuscular Hemoglobin 37.2 pg (28.0-32.0); Mean Corpuscular Hgb Conc. 34.4 g/dL (32.0-36.0); Platelet Count (auto) 137 10^3/uL (140-450); Red Blood Cells 3.48 10^6/uL (4.5-5.90); Red Cell Distribution Width 19.4 % (11.8-14.3)
[2019-05-10] MEDS: AMPICILLIN INJ 500 MG in SODIUM CHL 0.9% 50 ML IV SCH ×2 (06:09→16:03)
[2019-05-10] MEDS: MIDODRINE HCL 10 MG TAB PO SCH ×3 (06:10→18:34)
[2019-05-10] MEDS: OCTREOTIDE ACETATE 100 MCG/ML VL SUBCUT SCH ×3 (06:10→22:11)
[2019-05-10] MEDS: LACTULOSE 20Gm/30ML SOLN PO SCH ×4 (06:10→23:22)
[2019-05-10 06:18] LABS: Albumin 1.8 g/dL (3.4-5.0); Calcium 7.6 mg/dL (8.5-10.1); Potassium 3.6 mmol/L (3.5-5.1)
[2019-05-10 06:34] LABS: Bilirubin, Total 31.6 mg/dL (0.2-1.0)
[2019-05-10 06:38] LABS: BUN/Creatinine Ratio 7.2
[2019-05-10 06:39] LABS: Total Protein 5.9 g/dL (6.4-8.2)
[2019-05-10 06:51] LABS: Basophils % (manual) 0 (0.0-2.0); Blast Cells 0; Eosinophils % (manual) 0 (0-7); Metamyelocytes % 0; Myelocytes % 0; Promyelocytes % 0; Reactive Lymphocytes 0
[2019-05-10] MEDS ORDERED: SODIUM CHL 0.9% 1000 ML BAG XX ONE (07:00)
--- NOTE | 2019-05-10 07:10 | NUR ---
END OF SHIFT NOTE PATIENT RESTING IN BED WITH NO S/S OF DISTRESS OR SOB. HR 70, POX 98% ON RA. SITTER REMAINS AT BEDSIDE FOR PATIENT SAFETY. REPORT GIVEN TO DAY SHIFT RN ZEYNEP.
--- NOTE | 2019-05-10 07:40 | NUR ---
Opening Shift Note Assumed care of patient, awake, lying on the bed, watching TV. No S/S of distress/SOB or pain. Patient able to tell me his name, current time, knows where he is, able to move his arms and legs as i asked to show. Instructed on POC and to call for assist PRN, Sitter at the bedside for safety, will continue to monitor for changes Q1hr and PRN. Patient said he would like some juice, okay with Apple juice, provided, sitting up with high alvarado position for aspiration prevention, patient able to hold apple juice and drink without coughing. Will continue to monitor and care. Patient made aware that plan to dialysis today.
--- NOTE | 2019-05-10 08:10 | NUR ---
Mouth care provided, sitting up waiting for breakfast.
--- NOTE | 2019-05-10 08:20 | NUR ---
Nurse dialysis at the bedside for HD this morning.
--- NOTE | 2019-05-10 08:35 | NUR ---
Dr. Sprague at the bedside, seen and made aware about BP 103/60 mmHg before start dialysis, received order for 25% Ablumin 100 ml during HD for low blood pressure.
[2019-05-10] MEDS ORDERED: ALBUMIN 25% 100 ML IV ONE (08:45)
[2019-05-10 08:53] LABS: Band Neutrophils % (manual) 4; Lymphocytes % (manual) 8 (10.0-50.0); Monocytes % (manual) 5 (0-12)
--- NOTE | 2019-05-10 08:55 | NUR ---
SBP 85-95 mmHg, 25% albumin giving as order per Dr. Sprague, will continue to monitor and care, RN for HD at the bedside.
--- NOTE | 2019-05-10 09:50 | NUR ---
Families (brother and Dad) visit at this time, made aware about the plan of care, stated that will come back after dialysis done in around 1 hour. Patient agreed.
--- NOTE | 2019-05-10 10:00 | NUR ---
PT IS RECEIVING DIALYSIS. ATTEMPT P.T. LATER.
[2019-05-10] MEDS: FOLIC ACID 1 MG in D5W 5% 50 ML IV SCH (10:59)
[2019-05-10] MEDS: FAMOTIDINE (10MG/ML) 2ML VL IV SCH (11:00)
[2019-05-10] MEDS: THIAMINE 100mg/ml INJ (200mg/2ml VIAL) IV SCH (11:00)
--- NOTE | 2019-05-10 11:00 | NUR ---
Dialysis done around this time, 2 liters was removed, SBP 90-100 mmHg during the dialysis.
[2019-05-10] MEDS: ALLOPURINOL 100 MG TAB PO SCH (11:01)
[2019-05-10] MEDS: rifAXIMin 550 MG TAB PO SCH ×2 (11:01→22:09)
--- NOTE | 2019-05-10 11:23 | NUR ---
Patient sitting on the bed for breakfast, having oak milk, able to hold a cup and feeding himself, need to remind to eat, medications given after dialysis, pills gave with apple sauce, no aspiration noted. will continue to monitor and care.
--- NOTE | 2019-05-10 11:25 | NUR ---
Sitting up, BP 101/66 mmHg, HR 73, RR 22, [id number] 98% with room air, watching TV at this time.
--- NOTE | 2019-05-10 11:47 | NUR ---
received a call from Dr. Sherman, received orders to transfer to Tele, MD stated that MD already discussed with brother and Dad about patient's condition and plan, families will think about Hospice care and will let us know when they already made decision.
[2019-05-10] MEDS ORDERED: traMADol HCL 50 MG TAB PO PRN (12:00)
[2019-05-10] MEDS ORDERED: AMPICILLIN 250 MG/5ML ORAL SUSP 200ML PO SCH (12:00)
[2019-05-10] MEDS ORDERED: MORPHINE SULF INJ 2 MG/ML SYRINGE 1ML IV PRN (12:15)
--- NOTE | 2019-05-10 12:45 | NUR ---
Patient sittin up on the bed for having Lunch.
[2019-05-10 13:17] LABS: % Iron Saturation 112.7 % (20-55)
--- NOTE | 2019-05-10 13:50 | NUR ---
Received a call from Radiology department per Dr. Smith told staff that plan for changing to Tunnel catheter possible on this or Thursday. Families made aware.
--- NOTE | 2019-05-10 14:45 | NUR ---
Talked to families (da and brother). They came and talked to me, asking about the hospice care, they didn't make decision yet, they concerned about after discharge with hospice. His dad said he cannot taking care patient at home and he cannot watch him pass away at home. They need help. They said patient might has the limit by his insurance to reach help or go to [facility] with hospice. Paged and left the message to social service. Waiting a call back. Addendum: 05/10/19 at 1544 by ELDON VAZQUEZ RN RN Dad and brother
--- NOTE | 2019-05-10 17:30 | NUR ---
Telemetry admit from [facility] MATTHEW SULTANA admitted to Telemetry unit after SBAR received. Patient oriented to TIMOTEO HOLT RN, unit, room, bed, and unit policies regarding patient care and visiting hours. Patient now on continuous telemetry monitoring, tele box # 9 and telemetry reading on arrival to unit is SINUS RHYTHM AT 82. Patient weighed by bedscale and encouraged to call if they need something. All questions and concerns addressed, patient verbalized understanding. SITTER AT BEDSIDE.
--- NOTE | 2019-05-10 17:30 | NUR ---
JAMA pt transferred to floor MATTHEW SULTANA transferred to 287A via hospital bed on bus monitor (Tele HC 9). All patient medications and personal belongings transferred with patient to receiving floor. Patient care transferred to De [facility]ER. Called and talked to Xavi that patient will transfer to room 287B and he will call another Brother and Dad know as well.
[2019-05-10] MEDS ORDERED: EPOETIN ALFA 10,000 UNIT/1 ML VIAL SC ONE (21:00)
[2019-05-10] MEDS: PANTOPRAZOLE 40 MG TAB PO SCH (22:09)
[2019-05-11 05:01] VITALS: BP 101/50
[2019-05-11] MEDS: MIDODRINE HCL 10 MG TAB PO SCH ×3 (05:20→17:44)
[2019-05-11] MEDS: LACTULOSE 20Gm/30ML SOLN PO SCH ×3 (05:20→17:38)
[2019-05-11] MEDS: OCTREOTIDE ACETATE 100 MCG/ML VL SUBCUT SCH ×3 (05:21→22:01)
--- NOTE | 2019-05-11 07:50 | NUR ---
Patient in bed, asleep, no acute distress noted. Patient is jaundice, on rectal tube, on Ramos catheter. Sitter at bedside.
[2019-05-11 08:43] LABS: Hematocrit 36.2 % (41.0-53.0); Hemoglobin 12.3 g/dL (13.5-17.5); Mean Corpuscular Hemoglobin 36.8 pg (28.0-32.0); Mean Corpuscular Volume 108.4 fL (80.0-100.0); Platelet Count (auto) 110 10^3/uL (140-450); Red Blood Cells 3.34 10^6/uL (4.5-5.90); Red Cell Distribution Width 18.8 % (11.8-14.3); White Blood Cell 22.8 10^3/uL (4.4-10.8)
[2019-05-11 08:59] LABS: Basophils % (manual) 0 (0.0-2.0); Blast Cells 0; Eosinophils % (manual) 0 (0-7); Metamyelocytes % 0; Myelocytes % 0; Promyelocytes % 0; Reactive Lymphocytes 0
[2019-05-11 09:00] LABS: Albumin 1.8 g/dL (3.4-5.0); BUN/Creatinine Ratio 6.6; Calcium 7.8 mg/dL (8.5-10.1); Potassium 3.5 mmol/L (3.5-5.1)
--- NOTE | 2019-05-11 09:04 | NUR ---
Patient's brother Oliverio and father at bedside. Oliverio said he will come tomorrow if the tunnel catheter will be done to sign the consents for the patient.
[2019-05-11] MEDS ORDERED: SODIUM CHL 0.9% 1000 ML BAG XX ONE (09:30)
--- NOTE | 2019-05-11 09:30 | NUR ---
Received call from Laboratory of critical BUN and Creatinine.
[2019-05-11 09:34] LABS: Band Neutrophils % (manual) 5; Lymphocytes % (manual) 5 (10.0-50.0); Monocytes % (manual) 11 (0-12)
[2019-05-11 09:51] LABS: Total Protein 5.6 g/dL (6.4-8.2)
--- NOTE | 2019-05-11 10:30 | NUR ---
Stools leaking on the anal area. Patient has rectal tube, cleaned the patient, about 20 ml of NS injected via rectal tube port to inflate the balloon to anchor.
--- NOTE | 2019-05-11 10:35 | NUR ---
Patient requested to take his medications with apple sauce. Sitter at bedside.
[2019-05-11] MEDS: rifAXIMin 550 MG TAB PO SCH ×2 (10:37→17:38)
[2019-05-11] MEDS: FOLIC ACID 1 MG TAB PO SCH (10:37)
[2019-05-11] MEDS: PANTOPRAZOLE 40 MG TAB PO SCH ×2 (10:38→22:00)
[2019-05-11] MEDS: ALLOPURINOL 100 MG TAB PO SCH (10:38)
[2019-05-11] MEDS: THIAMINE HCL 100 MG TAB PO SCH (10:38)
--- NOTE | 2019-05-11 10:45 | NUR ---
Dialysis Nurse Davina came over. Patient scheduled for hemodialysis today.
--- NOTE | 2019-05-11 10:50 | NUR ---
Dr. Sherman speaking with the patient's brother and father at this time.
--- NOTE | 2019-05-11 12:03 | NUR ---
Dr. Sherman came over to see the patient. Patient asleep at this time. Sitter at bedside.
--- NOTE | 2019-05-11 12:32 | NUR ---
WOUND CARE NOTE: Wound care in to see patient for reevaluation of wounds and skin integrity monitoring. Patient is resting in bed in Rm. 287B. He's awake, able to follow simple direction and able to assist in turning and repositioning. His Micky score is 14. Patient appears to be in no pain using Mejias Schumacher Faces Pain Scale. He has sitter at bedside for safety. Skin assessment done with the assistance of nurse account assistant at bedside. Patient's R knee and Rt lower leg continue to display superficial abrasion and ecchymosis, area is clean and dry, left open to air. Patient's medial sacrum at intragluteal fold continue to display moist redness intertrigo/MASD with brown hyperpigmented skin. He continue to have loose stools and has rectal tube in placed. 0.5x2cm intact non-blanchable redness noted to his L gluteal consistent with Stage 1 pressure injury. Bedside nurse took photograph of patient's sacral and buttocks for reference. Brenda care given and applied Z Guard cream to sacral, buttocks and perineum as MD ordered. Repositioned patient for comfort facing his Lt side, redistributed pressure points with pillows. Patient tolerated well. Sitter at bedside. RECOMMENDATION: Continue with BID/PRN cleaning and application of Z Guard cream to sacral, buttocks and perineum per MD order, continue with skin/wound plan of care, continue monitoring by wound care while patient is hospitalized. Addendum: 05/11/19 at 1623 by Aracelis Ivy RN Amended: Links added.
--- NOTE | 2019-05-11 15:15 | NUR ---
Heparin 10,000 units (1 vial) endorsed to Dialysis Nurse Davina.
--- NOTE | 2019-05-11 15:37 | NUR ---
Nutrition Follow-up Notes Wt.: 154.5 kg Pt was sleeping with no family by beside. per records pt with ALOC. per records pt to have HD today. per records pt with liver failure and cirrhosis. pt is currently on renal std diet with inadequate PO of < 50% x 5 per RN doc Est. Needs ABW [id number] kcal (17-20 kcal/kgBW), 72-96 gms pro (0.6-0.8 gms/kgBW d/t elev ammonia severe hypoalbuminemia). Will continue to monitor pertinent labs and reassess nutrient need prn Labs: AMMONIA 71 H, BUN 103 H, CREAT 4.3 H, JULIANNA 31.6 H, ALB 1.8 L. Skin: Micky scale 14, mod risk, pt with MASD sacrum jaundice per RN doc. GI: Pt had 1 BM yesterday per financial sales manager. PES: Altered nutrition related lab values r/t current chronic medical condition aeb elev RFT ammonia, hyperglycemia, severe hypoalb hypocalcemia Decreased nutrient needs r/t adiposity aeb pt`s high BMI of 46.2 kgm2 Inadequate PO intake r/t current medical condition aeb pt`s with ALOC and NPO Will continue to monitor PO intake, skin status, pertinent labs and weight trend. F/u in 3-5 days. Rec.: 1.) refer to [employer] dietitian on DC. 2) continue assistance with meals. 3) consider nutrihep i carton bid if PO continues to be low. 4) consider MVI/C bid. 5) consider prostat 1 packet bid as RFT and ammonia improve. 6) continue current plan fo care
--- NOTE | 2019-05-11 16:00 | NUR ---
PT IS RECEIVING DIALYSIS.
--- NOTE | 2019-05-11 17:11 | NUR ---
Hemodialysis done. About 32 ml off, BP = 99/46, Heart Rate = 69 as per Dialysis Nurse Davina. Sitter at bedside.
[2019-05-11] MEDS: AMPICILLIN INJ 500 MG in SODIUM CHL 0.9% 50 ML IV SCH (17:38)
[2019-05-11 22:00] VITALS: BP 100/49
[2019-05-12] MEDS: LACTULOSE 20Gm/30ML SOLN PO SCH ×5 (00:23→23:34)
--- NOTE | 2019-05-12 01:25 | NUR ---
PATIENT PULLED OUT RECTAL TUBE.
--- NOTE | 2019-05-12 01:45 | NUR ---
NEW RECTAL TUBE RETRIEVED FROM ICU AND REPLACED. IRRIGATED AND CONFIRMED PLACEMENT.
[2019-05-12 05:40] VITALS: BP 93/48
[2019-05-12] MEDS: MIDODRINE HCL 10 MG TAB PO SCH ×3 (05:54→17:32)
[2019-05-12] MEDS: OCTREOTIDE ACETATE 100 MCG/ML VL SUBCUT SCH ×3 (05:55→21:52)
[2019-05-12 09:00] VITALS: BP 89/54
[2019-05-12 09:44] LABS: BUN/Creatinine Ratio 6.6; Calcium 7.9 mg/dL (8.5-10.1); Potassium 3.9 mmol/L (3.5-5.1)
[2019-05-12] MEDS: PANTOPRAZOLE 40 MG TAB PO SCH ×2 (09:59→21:52)
[2019-05-12] MEDS: THIAMINE HCL 100 MG TAB PO SCH (09:59)
[2019-05-12] MEDS: rifAXIMin 550 MG TAB PO SCH ×2 (09:59→21:52)
[2019-05-12] MEDS: ALLOPURINOL 100 MG TAB PO SCH (09:59)
[2019-05-12] MEDS: FOLIC ACID 1 MG TAB PO SCH (09:59)
[2019-05-12 13:00] VITALS: BP 91/46
[2019-05-12 16:00] VITALS: BP 98/65
[2019-05-12] MEDS: AMPICILLIN INJ 500 MG in SODIUM CHL 0.9% 50 ML IV SCH (17:31)
--- NOTE | 2019-05-12 20:05 | NUR ---
TELEBOX WAS REMOVED AT THIS TIME
[2019-05-12 22:00] VITALS: BP 99/52
[2019-05-13 05:09] VITALS: BP 92/46
[2019-05-13] MEDS: OCTREOTIDE ACETATE 100 MCG/ML VL SUBCUT SCH ×3 (05:58→22:43)
[2019-05-13] MEDS: LACTULOSE 20Gm/30ML SOLN PO SCH ×3 (05:58→18:44)
[2019-05-13] MEDS: MIDODRINE HCL 10 MG TAB PO SCH ×3 (05:58→18:44)
--- NOTE | 2019-05-13 06:20 | NUR ---
RECTAL TUBE WAS FOUND DISLODGED. 1200 ML WAS IN THE COLLECTION BAG
--- NOTE | 2019-05-13 06:29 | NUR ---
RECTAL TUBE WAS SUCCESSFULLY REPLACED. TUBE IS PATENT AND DRAINING.
[2019-05-13] MEDS ORDERED: SODIUM CHL 0.9% 1000 ML BAG XX ONE (07:00)
[2019-05-13 07:14] LABS: Albumin 1.7 g/dL (3.4-5.0); BUN/Creatinine Ratio 6.5; Calcium 7.8 mg/dL (8.5-10.1); Potassium 3.2 mmol/L (3.5-5.1)
[2019-05-13 07:15] LABS: Hematocrit 36.3 % (41.0-53.0); Hemoglobin 12.3 g/dL (13.5-17.5); Mean Corpuscular Hemoglobin 36.9 pg (28.0-32.0); Mean Corpuscular Volume 108.7 fL (80.0-100.0); Platelet Count (auto) 88 10^3/uL (140-450); Red Blood Cells 3.34 10^6/uL (4.5-5.90); Red Cell Distribution Width 18.1 % (11.8-14.3); White Blood Cell 23.6 10^3/uL (4.4-10.8)
[2019-05-13 07:16] LABS: Basophils % (manual) 0 (0.0-2.0); Blast Cells 0; Myelocytes % 0; Promyelocytes % 0; Reactive Lymphocytes 0
--- NOTE | 2019-05-13 07:20 | NUR ---
Opening Shift Note Assumed care of patient, awake and alert. No S/S of distress/SOB or pain. Instructed on POC and to call for assist PRN, will continue to monitor for changes Q1hr and PRN. Bed locked in lowest position with two side rails up and call light in reach.
[2019-05-13 07:25] LABS: Bilirubin, Total 30.6 mg/dL (0.2-1.0); Total Protein 5.8 g/dL (6.4-8.2)
--- NOTE | 2019-05-13 07:46 | NUR ---
CRITICAL LAB VALUE RECEIVED FROM PM NURSE. CREATININE 12.4 BUN [address] WILL REPORT LABS TO DR ARZATE.
[2019-05-13 07:51] LABS: INR 2.36 (0.9-1.15); Partial Thromboplastin Time 67.4 sec (23.64-32.05)
[2019-05-13 08:00] VITALS: BP 114/52
--- NOTE | 2019-05-13 08:15 | NUR ---
DR ARZATE AWARE OF CRITICAL LAB VALUES CREA AND BUN
[2019-05-13 09:11] LABS: Band Neutrophils % (manual) 4; Eosinophils % (manual) 1 (0-7); Lymphocytes % (manual) 5 (10.0-50.0); Metamyelocytes % 2; Monocytes % (manual) 8 (0-12)
[2019-05-13] MEDS: rifAXIMin 550 MG TAB PO SCH ×2 (09:26→22:42)
[2019-05-13] MEDS: ALLOPURINOL 100 MG TAB PO SCH (09:26)
[2019-05-13] MEDS: THIAMINE HCL 100 MG TAB PO SCH (09:26)
[2019-05-13] MEDS: FOLIC ACID 1 MG TAB PO SCH (09:26)
[2019-05-13] MEDS: PANTOPRAZOLE 40 MG TAB PO SCH ×2 (09:26→22:42)
--- NOTE | 2019-05-13 10:40 | NUR ---
PT RAQUEL PAYNE WORKED WITH PATIENT AND STOOD PATIENT UP 3 TIMES AND WAS ABLE TO SIT AT EDGE OF BED. PATIENT IS A MAX ASSIST PER RAQUEL PAYNE.
[2019-05-13] MEDS ORDERED: traMADol HCL 50 MG TAB PO PRN (11:45)
[2019-05-13] MEDS ORDERED: LORazepam 2MG/ML-1ML VIAL IV PRN (11:45)
[2019-05-13 13:00] VITALS: BP 100/49
[2019-05-13] MEDS ORDERED: ALBUMIN 25% 100 ML IV ONE (13:30)
[2019-05-13 16:00] VITALS: BP 87/44
[2019-05-13] MEDS: AMPICILLIN INJ 500 MG in SODIUM CHL 0.9% 50 ML IV SCH (16:16)
--- NOTE | 2019-05-13 16:45 | NUR ---
DIALYSIS COMPLETE TOTAL OUT PUT IS 1/2 LITER PATIENT HAVING DARK BROWN/GREENISH URINE MINIMAL OUTPUT NOTED.
--- NOTE | 2019-05-13 17:00 | NUR ---
RECTAL TUBE RECTAL TUBE LEAKING INFLATED AN ADDITIONAL 5 ML AND NO LEAKING AT THIS TIME. PATIENT REPOSITIONED An cleaned new linen change.
[2019-05-13] MEDS ORDERED: EPOETIN ALFA 10,000 UNIT/1 ML VIAL SC ONE (21:00)
[2019-05-13 22:00] VITALS: BP 105/47
--- NOTE | 2019-05-13 23:00 | NUR ---
RECTAL TUBE RECTAL TUBE CAME OUT. PER PATIENT, WHEN HE WAS ADJUSTING HIMSELF IN BED IT CAME OUT. WILL REINSERT NEW TUBE.
--- NOTE | 2019-05-14 01:30 | NUR ---
NEW RECTAL TUBE INSERTED. PATIENT TOLERATED WELL. WILL CONTINUE TO MONITOR.
[2019-05-14] MEDS: MIDODRINE HCL 10 MG TAB PO SCH ×3 (05:10→17:43)
[2019-05-14 05:31] VITALS: BP 100/48
[2019-05-14] MEDS: LACTULOSE 20Gm/30ML SOLN PO SCH ×4 (05:56→17:43)
[2019-05-14] MEDS: OCTREOTIDE ACETATE 100 MCG/ML VL SUBCUT SCH ×3 (05:57→21:59)
--- NOTE | 2019-05-14 07:20 | NUR ---
Opening Shift Note Assumed care of patient, awake and alertX4, sitting up in bed. No S/S of distress/SOB, no pain noted or reported at this time. Respirations are even and unlabored on RA. Updated on POC and instructed to call for assistance as needed, pt. verbalized understanding. Bed locked in lowest position, call light within reach, side rails up x2. Sitter at bedside for safety. Will continue to monitor for changes Q1hr and PRN.
[2019-05-14 09:20] VITALS: BP 94/51
--- NOTE | 2019-05-14 09:50 | NUR ---
PATIENT REQUESTS THAT WE ATTEMPT P.T. LATER.
[2019-05-14] MEDS: THIAMINE HCL 100 MG TAB PO SCH (09:55)
[2019-05-14] MEDS: rifAXIMin 550 MG TAB PO SCH ×2 (09:55→21:58)
[2019-05-14] MEDS: PANTOPRAZOLE 40 MG TAB PO SCH ×2 (09:55→21:58)
[2019-05-14] MEDS: FOLIC ACID 1 MG TAB PO SCH (09:55)
[2019-05-14] MEDS: ALLOPURINOL 100 MG TAB PO SCH (09:55)
--- NOTE | 2019-05-14 10:00 | NUR ---
RECTAL TUBE RECTAL TUBE CAME OUT. PER PATIENT, WHEN HE WAS ADJUSTING HIMSELF IN BED IT CAME OUT. PATIENT STATED HE DOES NOT WANT IT PUT BACK IN. EDUCATED PATIENT ON THE NEED TO BE CLEANED UP IMMEDIATELY AFTER DEFECATION FOR WOUND PREVENTION, PT VERBALIZED UNDERSTANDING. MD NOTIFIED OF CONTINUOS LEAKAGE AND RECTAL TUBE COMING OUT AFTER SEVERAL INSERTIONS AND PATIENTS REFUSAL TO REINSERT. OKAY TO LEAVE OUT PER MD.
--- NOTE | 2019-05-14 10:40 | NUR ---
DR. ISAAC AT BEDSIDE. DISCUSSED AT LENGTH WITH PATIENT, HIS FATHER, AND HIS BROTHERS ABOUT PATIENTS POOR PROGNOSIS. MD ADDRESSED ALL QUESTIONS AND CONCERNS AT THIS TIME.
[2019-05-14 13:00] VITALS: BP 97/48
--- NOTE | 2019-05-14 14:15 | NUR ---
Nutrition Follow-up Notes Wt. 158 kg Excellent appetite and no GI distress reported at this time. Documented meals PO 100% x 3 meals. Pt. had HD completed on 05/13 Est. Needs ABW 121kg (Based on previous assessment): [id number] kcal (17-20 kcal/kgBW), 72-96 gms pro (0.6-0.8 gms/kgBW d/t elev ammonia severe hypoalbuminemia). Will continue to monitor pertinent labs and reassess nutrient need prn Labs: H/H 12.3L/36.3L, Na 133L, K 3.2L, BUN 81H, Cr 12.3H, AST 246H, ALT 80H, ALB 1.8L Skin: Micky 14 GI: Multiple loose stools with flexiseal in place draining liquid stool PES: Altered nutrition related lab values r/t current chronic medical condition aeb elev RFT ammonia, hyperglycemia, severe hypoalb hypocalcemia (ongoing) Decreased nutrient needs r/t adiposity aeb pt`s high BMI of 46.2 kgm2 (ongoing) Inadequate PO intake r/t current medical condition aeb pt`s with ALOC and NPO (ongoing) Plan of care: Monitor PO intake/tolerance, weight trends, labs, skin integrity. F/U 3-5 days. Recommendations: 1) Continue renal standard diet as ordered and as tolerated. 2) Consider adding Nephro-Tez QD for supplementation.
[2019-05-14] MEDS: AMPICILLIN INJ 500 MG in SODIUM CHL 0.9% 50 ML IV SCH (15:46)
[2019-05-14 17:36] VITALS: BP 95/42
[2019-05-14 21:21] VITALS: BP 120/55
[2019-05-15] MEDS: LACTULOSE 20Gm/30ML SOLN PO SCH ×5 (00:26→23:32)
[2019-05-15 05:41] VITALS: BP 108/43
[2019-05-15] MEDS: MIDODRINE HCL 10 MG TAB PO SCH ×3 (06:19→17:19)
[2019-05-15] MEDS: OCTREOTIDE ACETATE 100 MCG/ML VL SUBCUT SCH ×3 (06:19→23:31)
--- NOTE | 2019-05-15 07:30 | NUR ---
Opening Shift Note Assumed care of patient, awake and alertX4, resting in bed watching television. No S/S of distress/SOB, no pain noted or reported at this time. Respirations are even and unlabored on RA. Updated on POC and instructed to call for assistance as needed, pt. verbalized understanding. Bed locked in lowest position, call light within reach, side rails up x2. Sitter at bedside for safety. Will continue to monitor for changes Q1hr and PRN.
[2019-05-15 07:39] LABS: BUN/Creatinine Ratio 6.4; Potassium 3.1 mmol/L (3.5-5.1)
[2019-05-15 09:00] VITALS: BP 94/49
[2019-05-15] MEDS: PANTOPRAZOLE 40 MG TAB PO SCH ×2 (09:11→23:30)
[2019-05-15] MEDS: FOLIC ACID 1 MG TAB PO SCH (09:13)
[2019-05-15] MEDS: THIAMINE HCL 100 MG TAB PO SCH (09:13)
[2019-05-15] MEDS: rifAXIMin 550 MG TAB PO SCH ×2 (09:13→23:30)
[2019-05-15] MEDS: ALLOPURINOL 100 MG TAB PO SCH (09:13)
[2019-05-15] MEDS ORDERED: POTASSIUM CHL 20 Meq TABLET PO ONE (10:15)
[2019-05-15 12:51] VITALS: BP 97/51
[2019-05-15 17:02] VITALS: BP 107/54
--- NOTE | 2019-05-15 20:00 | NUR ---
RECEIVED PT FROM DAY RN POC REVIEWED
[2019-05-15 21:00] VITALS: BP 106/52
--- NOTE | 2019-05-16 02:09 | NUR ---
NO CHANGE RESTING WITH EYES CLOSED RESP EVEN AND UNLABORED TURN Q 2 HRS
[2019-05-16 04:00] VITALS: BP 93/46
[2019-05-16] MEDS: OCTREOTIDE ACETATE 100 MCG/ML VL SUBCUT SCH ×3 (06:48→21:42)
[2019-05-16] MEDS: MIDODRINE HCL 10 MG TAB PO SCH ×3 (06:48→18:01)
[2019-05-16] MEDS: LACTULOSE 20Gm/30ML SOLN PO SCH (06:49)
--- NOTE | 2019-05-16 07:13 | NUR ---
REPORT GIVEN TO AM NURSE POC REVIEWED
--- NOTE | 2019-05-16 08:00 | NUR ---
Opening Shift Note: Assumed care of patient, awake and alert. Patient laying in bed. No S/S of distress/SOB or pain. Bed in lowest locked position, side rails up x 2, call light within reach. Instructed on POC and to call for assist PRN, will continue to monitor for changes Q1hr and PRN.
[2019-05-16] MEDS ORDERED: ALBUMIN 25% 50 ML IV ONE (09:00)
[2019-05-16 09:03] VITALS: BP 85/37
--- NOTE | 2019-05-16 09:15 | NUR ---
Doctor notified of low BP, Albumin ordered.
[2019-05-16] MEDS: ALLOPURINOL 100 MG TAB PO SCH (10:05)
[2019-05-16] MEDS: FOLIC ACID 1 MG TAB PO SCH (10:05)
[2019-05-16] MEDS: THIAMINE HCL 100 MG TAB PO SCH (10:05)
[2019-05-16] MEDS: rifAXIMin 550 MG TAB PO SCH (10:05)
[2019-05-16] MEDS: PANTOPRAZOLE 40 MG TAB PO SCH ×2 (10:05→21:41)
[2019-05-16 12:30] VITALS: BP 100/44
[2019-05-16] MEDS ORDERED: SODIUM CHL 0.9% 1000 ML BAG XX ONE (13:30)
--- NOTE | 2019-05-16 14:45 | NUR ---
Dialysis almost complete.
--- NOTE | 2019-05-16 17:05 | NUR ---
ATTEMPTED TO PAGE DR ARZATE IN REGARDS TO PATIENTS BLOODY STOOL. HOSPITALIST MONIKA CALLED AND UPDATED ON PT STATUS.
--- NOTE | 2019-05-16 19:00 | NUR ---
Opening Shift Note Assumed care of patient, awake and alert. No S/S of distress/SOB or pain. Instructed on POC and to call for assist PRN, will continue to monitor for changes Q1hr and PRN.
[2019-05-16 19:35] LABS: Albumin 1.5 g/dL (3.4-5.0); Calcium 7.6 mg/dL (8.5-10.1); Potassium 3.6 mmol/L (3.5-5.1)
[2019-05-16 19:48] LABS: BUN/Creatinine Ratio 6.4; Bilirubin, Total 27.5 mg/dL (0.2-1.0)
[2019-05-16 19:58] LABS: Total Protein 5.3 g/dL (6.4-8.2)
[2019-05-16 22:02] VITALS: BP 78/44
--- NOTE | 2019-05-16 22:02 | NUR ---
Hospitalist paged d/t patient having a low blood pressure of 78/44
--- NOTE | 2019-05-16 22:22 | NUR ---
Hospitalist returned page: Hospitalist informed and updated on patient's condition. New orders obtained and verified.
[2019-05-16] MEDS ORDERED: ALBUMIN 25% 100 ML IV ONE (22:30)
[2019-05-16 23:56] VITALS: BP 77/35
--- NOTE | 2019-05-16 23:56 | NUR ---
Hospitalist paged d/t patient having a low blood pressure of 77/35
--- NOTE | 2019-05-17 00:49 | NUR ---
Hospitalist returned page: Hospitalist informed and updated on patient's condition. New orders obtained and verified.
[2019-05-17] MEDS ORDERED: SODIUM CHLORIDE 0.9% 500 ML IV ONE (01:00)
[2019-05-17 01:34] VITALS: BP 80/40
--- NOTE | 2019-05-17 01:34 | NUR ---
Hospitalist paged d/t patient having a low blood pressure of 80/40 HR 71. Hospitalist returned page immediately with new orders and orders verified.
[2019-05-17] MEDS ORDERED: ALBUMIN 25% 100 ML IV ONE ×2 (01:53→02:00)
[2019-05-17 07:01] LABS: BUN/Creatinine Ratio 6.7; Calcium 7.7 mg/dL (8.5-10.1); Potassium 3.5 mmol/L (3.5-5.1)
[2019-05-17 07:20] LABS: INR 2.55 (0.9-1.15)
[2019-05-17 07:46] LABS: Partial Thromboplastin Time 84.3 sec (23.64-32.05)
[2019-05-17 09:00] VITALS: BP 99/52
[2019-05-17 09:22] LABS: Hematocrit 30.5 % (41.0-53.0); Hemoglobin 10.6 g/dL (13.5-17.5); Red Blood Cells 2.84 10^6/uL (4.5-5.90)
[2019-05-17 09:23] LABS: Mean Corpuscular Hemoglobin 37.3 pg (28.0-32.0); Mean Corpuscular Hgb Conc. 34.7 g/dL (32.0-36.0); Mean Corpuscular Volume 107.3 fL (80.0-100.0); Red Cell Distribution Width 17.5 % (11.8-14.3); White Blood Cell 15.2 10^3/uL (4.4-10.8)
[2019-05-17 09:26] LABS: Basophils % (manual) 0 (0.0-2.0); Blast Cells 0; Metamyelocytes % 0; Myelocytes % 0; Promyelocytes % 0; Reactive Lymphocytes 0
[2019-05-17] MEDS ORDERED: PANTOPRAZOLE 40 MG/10 ML VIAL INJ IV ONE (09:30)
[2019-05-17] MEDS: MIDODRINE HCL 10 MG TAB PO SCH ×2 (12:00→17:46)
[2019-05-17] MEDS: LACTULOSE 20Gm/30ML SOLN PO SCH ×3 (12:00→23:51)
[2019-05-17 12:10] LABS: Band Neutrophils % (manual) 6; Eosinophils % (manual) 4 (0-7); Lymphocytes % (manual) 6 (10.0-50.0); Monocytes % (manual) 10 (0-12)
[2019-05-17 12:11] LABS: Platelet Count (auto) 39 10^3/uL (140-450)
[2019-05-17 13:00] VITALS: BP 85/48
[2019-05-17] MEDS: THIAMINE HCL 100 MG TAB PO SCH (13:12)
[2019-05-17] MEDS: FOLIC ACID 1 MG TAB PO SCH (13:12)
[2019-05-17] MEDS: ALLOPURINOL 100 MG TAB PO SCH (13:12)
--- NOTE | 2019-05-17 13:12 | NUR ---
re-assessment Dr Sherman and I have met with patient and his father. Dr Sherman explained patients clinical diagnosis to patient and family. Patient and his father Montana ANDERSON who is at bedside have agreed to hospice. MD order has been sent to [facility], and [facility]. Lauren from [facility] has spoken to patient and family. Patient has agreed to hospice. Lauren is setting up respite care and transport. Patient verbalized understanding and agreed to discharge plan to [facility] on hospice. Addendum: 05/18/19 at 1816 by Christine SETHI Amended: Links added.
--- NOTE | 2019-05-17 13:57 | NUR ---
D/C Planning Per consult for hospices. Contacted and faxed medical records to [facility], [facility] and [facility]. Per Lauren from [facility] ph: ) Fax: ) Pt has been evaluated and accepted and will set up transportation upon d/c day. Addendum: 05/17/19 at 1403 by CHAZ DOHERTY Amended: Links added.
[2019-05-17] MEDS: OCTREOTIDE ACETATE 100 MCG/ML VL SUBCUT SCH ×2 (14:00→21:42)
--- NOTE | 2019-05-17 16:41 | NUR ---
Annika FROM [facility] AT BEDSIDE TO SIGN PAPERS FOR HOSPICE NURSING FACILITY. PATIENT IS NOW REFUSING HOSPICE AFTER HE WAS TOLD HIS CHLOE CATH WOULD BE REMOVED. PT STATES "I DON'T WANT TO STOP DIALYSIS."
[2019-05-17 17:00] VITALS: BP 87/37
[2019-05-17] MEDS: PANTOPRAZOLE 40 MG/10 ML VIAL INJ IV SCH (21:42)
[2019-05-17 22:00] VITALS: BP 103/45
[2019-05-18 05:00] VITALS: BP 111/48
--- NOTE | 2019-05-18 05:58 | NUR ---
Patient accidentally pulled out IV to left hand when asleep.
--- NOTE | 2019-05-18 05:59 | NUR ---
IV insertion IV access to left wrist obtained, via clean sterile technique by inserting 22 gauge catheter after first attempt. IV secured properly. No trauma to site. Patient tolerated well.
[2019-05-18] MEDS: OCTREOTIDE ACETATE 100 MCG/ML VL SUBCUT SCH (06:00)
[2019-05-18] MEDS: MIDODRINE HCL 10 MG TAB PO SCH ×2 (06:00→12:09)
--- NOTE | 2019-05-18 07:32 | NUR ---
pt is resting with eyes closed, no distress noted, was easily awaken when called, given a bed bath, oral care, he denies any pain, no sob, was repositioned , sitter at bedside.
[2019-05-18 08:02] VITALS: BP 83/34
--- NOTE | 2019-05-18 08:02 | NUR ---
vs taken by sitter and confirmed by me, bp is 83/35, hr-69, 100% on room air, resp-16, i contacted dr valdes- she verbalized to continue to monitor, no orders at this time, pt sitting up in bed eating breaking fast.
[2019-05-18] MEDS: ALLOPURINOL 100 MG TAB PO SCH (08:23)
[2019-05-18] MEDS: FOLIC ACID 1 MG TAB PO SCH (08:23)
[2019-05-18] MEDS: THIAMINE HCL 100 MG TAB PO SCH (08:23)
--- NOTE | 2019-05-18 10:44 | NUR ---
WOUND CARE NOTE: Wound care in to see patient for reevaluation of wounds and skin integrity monitoring. Patient continue resting in bed in Rm. 287B. He's awake, able to follow simple direction and able to assist in turning and repositioning. His Micky score is 13. Patient appears to be in no pain using Mejias Schumacher Faces Pain Scale. Skin assessment done with the assistance of patient's nurse, ZOEY Hardwick and another nurse, ZOEY Taveras. Patient's R knee and Rt lower leg continue to display superficial abrasion and ecchymosis, area is clean and dry, left open to air. Patient's medial sacrum at intragluteal fold continue to display moist redness intertrigo/MASD with bright and dark red brenda wound. L gluteal Stage 1 pressure injury is now open to Stage 2 pressure injury measuring 1x2cm. New photograph of patient's sacral and L buttock wound are taken for reference. Brenda care given, applied Z Guard cream to sacral, buttocks and perineum, covered wound with Opti foam gentle dressing as MD ordered. Repositioned patient for comfort facing his Lt side, redistributed pressure points with pillows. Patient tolerated well. ZOEY Hardwick at bedside. RECOMMENDATION: Continuation of all wound care order prescribed by MD, continue with skin/wound plan of care, continue monitoring by wound care while patient is hospitalized. Addendum: 05/18/19 at 1901 by Aracelis Ivy RN Amended: Links added.
[2019-05-18] MEDS: LACTULOSE 20Gm/30ML SOLN PO SCH (12:09)
[2019-05-18] MEDS: PANTOPRAZOLE 40 MG/10 ML VIAL INJ IV SCH (12:10)
--- NOTE | 2019-05-18 12:15 | NUR ---
DR ARZATE, ZAYRA AND MYSELF AT BEDSIDE, SPOKE TO THE PATIENT ABOUT HIS PROGNOSIS, AND HE VERBALIZED THAT HE ACCEPTS GOING WITH HOSPICE AND STOPPING DIALYSIS, WHEN ASKED IF THERE WAS ANYONE HE WANTED US TO INFORM OF HIS DECISION HE VERBALIZED ONLY HIS FATHER.
--- NOTE | 2019-05-18 14:05 | NUR ---
dr valdes at bedside, patient verbalized he understands hes discontinuing with dialysis, dr valdes pulled line, placed pressure, patient tolerated well, gauze placed.
[2019-05-18] MEDS ORDERED: LACT10SO3 PO (15:21)
[2019-05-18] MEDS ORDERED: PANT40T PO (15:21)
[2019-05-18] MEDS ORDERED: THIA100T10 PO (15:21)
[2019-05-18] MEDS ORDERED: FOLI1TAB6 PO (15:21)
--- NOTE | 2019-05-18 16:54 | NUR ---
Followed up with Lauren from [facility] to set up transportation. Per Lauren from [facility] hospice transportation time will be arrange between the hours 18:00-19:00.
--- NOTE | 2019-05-18 17:50 | NUR ---
i went to patient bedside to get signatures for transfer and found brother at bedside. Brother verbalized, " i will call the media, and and a talent program manager if his brother is transferred out of this hospital." i verbalized that the patient and the father are in agreement of the transfer, as dr valdes and dr Park have gone over the patients options today, the patient continued to verbalized understanding about going with hospice. after several hours the brother verbalized that the patient can be taken to [facility] with hospice without signing any transfer papers, patient agreed if he can be taken without signing the forms he will go. Christine and i were at bedside and verbalized the comfort care provided for the patient and the patient verbalized, " I agreed to hospice because my kidneys are shot and they are not going to bet better?" patint going to [facility] acute room 37B.
--- NOTE | 2019-05-18 18:17 | NUR ---
re-assessment I have been called to patients room by ZOEY Hardwick. Per Ronen patients brother is at bedside threatening to call the press and a core analyst if patient leaves the hospital. I went to bedside and patients brother was very rude and trying to keep patient in the hospital. I explained that patient has made his decision to go to [facility] on [facility] hospice. Patients brother was making accusations that I gave clinical report on patient and it was not up to me. I informed brother that I have never talked clinical to the patient. Dr Sherman has always been with me during conversations with patient excluding this conversation. Security had to be called due to brother blocking transport. I asked the patient again if he wanted to discharge with hospice to [facility]. Patient informed me he did. I then excused myself and told transport they could take patient to [facility]. Patient verbalized understanding and agreed to discharge plan to [facility] room 38b on [facility]. Addendum: 05/18/19 at 1824 by Christine SETHI Amended: Links added.
--- NOTE | 2019-05-18 18:40 | NUR ---
i called and gave report to oRberta/ montrell accepting the patient to room 37B at [facility], shes aware patient refused to sign transfer paper work, and brother took all the belongings.
[2019-05-18] MEDS ORDERED: PANTOPRAZOLE 40 MG TAB PO SCH (22:00)
== END 2019-05-18 18:40 | disposition hospice, inpatient (51) | DRG 279 ==
LOC: ER 15:35 → EDBD 15:35 → TELE 15:36 → TELE-CENTR 23:33 → DOU IN ICU 05-04 17:20 → TELE-WESTW 05-10 17:33 → WEST WING 05-12 16:12
PROVIDERS: ADMIT Nurse Practitioner Acute Care; ATTEND Internal Medicine
PROC: 5A1D70Z Performance of Urinary Filtration, Intermittent, Less than 6 Hours Per Day (ICD-10-PCS; principal; 2019-05-06)
PROC: 02HV33Z Insertion of Infusion Device into Superior Vena Cava, Percutaneous Approach (ICD-10-PCS; 2019-05-06)
PROC: B5181ZA Fluoroscopy of Superior Vena Cava using Low Osmolar Contrast, Guidance (ICD-10-PCS; 2019-05-06)
PROC: B548ZZA Ultrasonography of Superior Vena Cava, Guidance (ICD-10-PCS; 2019-05-06)
PROC: 5A1D70Z Performance of Urinary Filtration, Intermittent, Less than 6 Hours Per Day (ICD-10-PCS; 2019-05-08)
PROC: 5A1D70Z Performance of Urinary Filtration, Intermittent, Less than 6 Hours Per Day (ICD-10-PCS; 2019-05-10)
PROC: 5A1D70Z Performance of Urinary Filtration, Intermittent, Less than 6 Hours Per Day (ICD-10-PCS; 2019-05-11)
PROC: 5A1D70Z Performance of Urinary Filtration, Intermittent, Less than 6 Hours Per Day (ICD-10-PCS; 2019-05-13)
PROC: 5A1D70Z Performance of Urinary Filtration, Intermittent, Less than 6 Hours Per Day (ICD-10-PCS; 2019-05-16)
DX: K76.7 Hepatorenal syndrome (principal); E43 Unspecified severe protein-calorie malnutrition; K85.90 Acute pancreatitis without necrosis or infection, unspecified; F10.231 Alcohol dependence with withdrawal delirium; N17.9 Acute kidney failure, unspecified; D68.9 Coagulation defect, unspecified; E87.2 Acidosis; D69.6 Thrombocytopenia, unspecified; K72.90 Hepatic failure, unspecified without coma; K92.2 Gastrointestinal hemorrhage, unspecified; K70.31 Alcoholic cirrhosis of liver with ascites; D53.9 Nutritional anemia, unspecified; D72.823 Leukemoid reaction; E16.2 Hypoglycemia, unspecified; E66.9 Obesity, unspecified; E87.6 Hypokalemia; K76.0 Fatty (change of) liver, not elsewhere classified; N39.0 Urinary tract infection, site not specified; Z51.5 Encounter for palliative care; Z79.899 Other long term (current) drug therapy; Z99.2 Dependence on renal dialysis; Z68.42 Body mass index [BMI] 45.0-49.9, adult
CPT/HCPCS: 36415; 71045; 74176; 76775; 76942; 80048; 80053; 80074; 80307; 80320; 81001; 82140; 82270; 82550; 82570; 82728; 82962; 83540; 83550; 83690; 83735; 84156; 84300; 84484; 84550; 85007; 85014; 85018; 85025; 85027; 85610; 85730; 86850; 86900; 86901; 87086; 90935; 93005; 96361; 96374; 96375; 97110; 97116; 97163; 97530; 99152; 99153; A4565; C9113; G0378; J0690; J0885; J1642; J2250; J3430; J3490; J7060; P9047